=== PATIENT | male | born 1965 | race African-American/Black ===

== ENCOUNTER → 2016-11-04 | Outpatient (CLI) | payer SELFPAY ==
[2016-01-10 13:58] VITALS: BP 171/98
--- NOTE | 2016-11-04 21:50 | CT ---
HISTORY: Globus sensation Study: CT soft tissue neck without contrast Comparison: None Technique: Multiple axial images of the soft tissue neck were obtained from skull base to the aortic arch after the administration of IV contrast. Sagittal and coronal reformats were performed and revi ewed. AEC was utilized. Findings: The visualized portions of the posterior fossa and orbits are unremarkable in appearance. The paroti d glands, submandibular glands, and thyroid gland are unremarkable in their contrast appearance. Exa m is limited without intravenous contrast, but the patient's GFR precluded intravenous contrast at th is time. The adenoids are prominent. Additionally, there is diffuse circumferential soft tissue [place] about the oropharynx involving the lingual and palatine tonsils with narrowing of the orophary nx and hypopharynx to the level of the cricoid cartilage. The larynx appears symmetric. No foreign body is identified. There is mild jugulodigastric lymphadenopathy with a left level 2 a lymph node me asuring 1.2 cm in greatest short axis dimension. The visualized portions of the mediastinum are unrem arkable as well. The bony structures appear intact. There is an incidental azygos fissure. IMPRESSION: Diffuse soft tissue swelling about the oropharynx and hypopharynx for which differential consideratio ns include severe oropharyngitis, angioedema, and malignancy. Direct visualization is recommended. Reported By:
== END ==
LOC: RAD 19:50 → EDSTATUS 21:40
DX: J02.0 Streptococcal pharyngitis (principal)
CPT/HCPCS: 70490